=== PATIENT | female | born 1965 | race Caucasian/White ===

== ENCOUNTER 2020-11-23 10:51 | Outpatient (CLI) | payer OTHER, SELFPAY ==
--- NOTE | 2020-11-23 11:13 | XR_ITS ---
WS: [id number] LUMBAR SPINE TECHNIQUE: 3 views of the lumbar spine CLINICAL INFORMATION: BACK PAIN COMPARISON: 014 FINDINGS: Five [id number] lumbar vertebral bodies. Mild lumbar curve convex left. Cholecystectomy clips. A nterolisthesis L4 on L5 measuring 4.6 mm. Disc space narrowing worse L4-L5 and L5-S1. Moderate facet arthropathy L5-S1 with bony foraminal narrowing. Mild chronic anterior wedging at the thoracolumbar j unction. Osteopenia. Disc space narrowing L4-L5 and L5-S1 has progressed since 2014. Anterolisthesis at L4-L5 has progress ed slightly. XR/XR lumbar spine 2-3V* [id number] IMPRESSION: 1. Mild lumbar curve convex left. Osteopenia. 2. Grade 1 anterolisthesis L4 on L5 measuring 4.6 mm. 3. Disc space narrowing worse L4-L5 and L5-S1. 4. Moderate facet arthropathy L5-S1 with bony foraminal narrowing.
== END 2020-11-23 10:52 | disposition home or self-care (01) ==
PROVIDERS: PCP Family Medicine; Visit Provider Dermatology
DX: M54.5 Low back pain (principal); M47.817 Spondylosis without myelopathy or radiculopathy, lumbosacral region; M85.88 Other specified disorders of bone density and structure, other site
CPT/HCPCS: 72100